=== PATIENT | female | born 1955 | race Caucasian/White ===

== ENCOUNTER 2017-02-19 08:08 | Emergency (ER) | payer BC ==
[2017-02-19 08:37] VITALS: BP 130/57
--- NOTE | 2017-02-19 09:09 | UC ---
Skin Complaint HPI - HPI Summary HPI Summary: 61 year old female with skin complaint. Yesterday was having chills and recent congestion and feeing under the weather. No fever. No CP or SOB. RASH ALL OVER HER BODY . NONPRUITIC. NO SOB OR SWELLING YESTERDAY PT TOOK A MUCINEX AND CLARITIN TOGETHER FOR ALLERGY SYMPOTMS. SHE WAS FEELING A LITTLE "LOAGY" AND HAD CHILLS LATER IN THE DAY. AFTER TAKING A HOT BATH SHE NOTICED THE RASH. [ End ] - History of Current Complaint Chief Complaint: UCAllergicReaction Time Seen by Provider: 02/19/17 08:59 Stated Complaint: SKIN COMPLAINT Hx Obtained From: Patient Onset/Duration: Gradual Onset Skin Exposure Onset/Duration: Days Ago Timing: Constant Onset Severity: Moderate Current Severity: Moderate Location: Diffuse Aggravating Factor(s): Nothing Alleviating Factor(s): Nothing - Allergy/Home Medications Allergies/Adverse Reactions: Allergies Allergy/AdvReac Type Severity Reaction Status Date / Time No Known Allergies Allergy Verified 02/19/17 08:14 Home Medications: Home Medications Bioflavonoid Products [Liana-C] 1 tab PO DAILY 02/19/17 [History Confirmed 02/19] Cholecalciferol [D 1000] 1,000 unit PO DAILY 02/19/17 [History Confirmed ] Loratadine [Claritin 10 MG CAP] 10 mg PO DAILY 02/19/17 [History Confirmed 02/19] Multiple Vitamin [Multivitamins] 1 cap PO DAILY 02/19/17 [History Confirmed 11/29] Zinc 30 mg PO DAILY 02/19/17 [History Confirmed 02/19/17] guaiFENesin ER TAB [Mucinex*] 600 mg PO BID 02/19/17 [History Confirmed 02/19/17 ] Review of Systems Constitutional: Chills Skin: Rash ENT: Nasal Discharge Is Patient Immunocompromised?: No All Other Systems Reviewed And Are Negative: Yes PMH/Surg Hx/FS Hx/Imm Hx Previously Healthy: Yes - Surgical History Surgical History: Yes Surgery Procedure, Year, and Place: D&C, 2004. Hernia Repair. T&A - Family History Known Family History: Positive: Other - denies any FMH bleeding disorders - Social History Occupation: Employed Full-time Lives: With Family Alcohol Use: None Substance Use Type: None Smoking Status (MU): Former Smoker When Did the Patient Quit Smoking/Using Tobacco: 20 YRS AGO - Immunization History Most Recent Influenza Vaccination: NOT IN 2017 Most Recent Tetanus Shot: OVER 10 YRS AGO Physical Exam Triage Information Reviewed: Yes Appearance: Well-Appearing, No Pain Distress, Well-Nourished Vital Signs: Initial Vital Signs Temp 98.8 F 02/19/17 08:19 Pulse 86 02/19/17 08:19 Resp 18 02/19/17 08:19 BP 130/57 02/19/17 08:19 Pulse Ox 97 02/19/17 08:19 Vital Signs Reviewed: Yes Eye Exam: Normal ENT Exam: Normal Dental Exam: Normal Neck exam: Normal Neck: Positive: 1 Respiratory Exam: Normal Cardiovascular Exam: Normal Abdominal Exam: Normal Musculoskeletal Exam: Normal Neurological Exam: Normal Psychological Exam: Normal Skin Exam: Normal Skin: Positive: rashes - numerous red maculopapular lesions on the whole dy, blanchable, no streaking or induration. Course/Dx - Course Course Of Treatment: she did mow lawn 2 days ago and she thinks there could be allergy component of this and there is some itch. I think more of a viral exanthem since she did have some congestion and chills yesterday. to help reduce the itch or allergy component will try medrol, she is aware of the SE and if any concerns to go to ED for further eval and labs as she is aware we can not perform stat labs - Diagnoses Provider Diagnoses: viral exanthem Discharge - Discharge Plan Condition: Good Disposition: HOME Prescriptions: Methylprednisolone [Medrol Dosepak 4 MG*] 0 mg PO .SEE KATHERINE INSTRUCTION #1 tab Patient Education Materials: Viral Exanthem (ED) Referrals: No Primary Care Phys,NOPCP [Primary Care Provider] - Brian Pete DO [Doctor of Osteopathy] - (Consider for PCP )
== END 2017-02-19 09:24 | disposition home or self-care (01) ==
LOC: UCCORT 08:08
DX: B09 Unspecified viral infection characterized by skin and mucous membrane lesions (principal); Z87.891 Personal history of nicotine dependence
CPT/HCPCS: 99212; G0463